=== PATIENT | male | born 1985 | race Caucasian/White ===

== ENCOUNTER 2025-01-18 11:02 | Emergency (ER) | payer MEDICAID, SELFPAY ==
--- NOTE | 2025-01-18 11:22 | XR_ITS ---
Examination: CT brain head without contrast. 2-D sagittal coronal reconstructions Date and time of exam:January 18, 2025 1136 hours INDICATIONS: Body paresthesias and blurred vision today CTDI: vol (mGy):54.1 DLP: (mGycm):1137 Technique: Multiple CT axial sections of the brain have been obtained, 5 mm slice thickness. Contrast has not been administered. 2-D sagittal, coronal reconstructions have been obtained Low dose protocols were performed. One or more of the following dose reduction techniques were used; automated exposure control, adjustment of the mA and/or KV according to patient size, use of iterative reconstruction technique. Findings: No significant ventricular enlargement. Left frontal encephalomalacia, left temporal lobe encephalomalacia Intra-axial or extra-axial hemorrhage density is not seen. No mass effect or midline shift Basal cisterns are not remarkable. Fourth ventricle is midline. Cranial vault intact. Partially ossified retention cyst in the right maxillary antrum Impression: Negative for acute hemorrhage, mass effect or midline shift As clinically warranted, brain MRI follow-up would best assess for demyelinating disease
[2025-01-18 11:23] VITALS: BP 126/85; PULSE 100; RESP 18; TEMP 36.6; O2SAT 95; BMI 31.3
--- NOTE | 2025-01-18 11:23 | XR_ITS ---
Examination: PA lateral chest 2 views Technique upright PA lateral chest 2 views Date and time: January 18, 2025 1139 hours INDICATIONS: Body aches and chest pain today FINDINGS: Normal heart size. Lungs are clear. The osseous structures are intact IMPRESSION: No active disease
--- NOTE | 2025-01-18 11:23 | EKG_ITS ---
[facility] Test Date: 2025-01-18 Pat Name: MEHNAZ ZHANG Department: Room: - Gender: Male Business Office Representative: : 1985 Requested By: Gibran Dexter (CLAUDETTE) Order Number: [id number] Reading MD: Gibran Dexter (CLAUDETTE) Measurements Intervals [place] Rate: 99 P: 44 NE: 158 QRS: 25 QRSD: 89 T: 21 QT: 332 QTc: 427 Interpretive Statements SINUS RHYTHM No previous ECG available for comparison /store/S0/[id number]/[id number]
--- NOTE | 2025-01-18 11:23 | PD.EDRME ---
Rapid Medical Screening Exam RME Arrival date/time: 01/18/25 11:02 39-year-old male presents emergency department today for complaints of feeling off today patient reports feeling shaky with blurred vision Chief Complaint: Skin/Abscess/Foreign Body
[2025-01-18 12:03] LABS: Basophils # (Auto) 0.1 Thou/mm3 (0.0-0.2); Basophils % (Auto) 1 % (0-2.5); Eosinophils # (Auto) 0.1 Thou/mm3 (0.0-0.5); Eosinophils % (Auto) 1 % (0-10); Hematocrit 46.9 % (41.0-53.0); Hemoglobin 16.5 g/dL (13.5-16.0); Immature Granulocytes Auto 0.03 Thou/mm3 (0.00-0.00); Lymphocytes # (Auto) 1.2 Thou/mm3 (1.0-4.8); Lymphocytes % (Auto) 15 % (10-50); Mean Corpuscular HGB Conc 35.2 g/dl (31.0-37.0); Mean Corpuscular Hemoglobin 30.1 pg (25.0-35.0); Mean Corpuscular Volume 86 fL (80-100); Monocytes # (Auto) 0.5 Thou/mm3 (0.0-0.8); Monocytes % (Auto) 7 % (0-12); Neutrophils # (Auto) 5.8 Thou/mm3 (1.8-7.7); Neutrophils % (Auto) 75 % (37-80); Nucleated Red Blood Cell # 0.00 Thou/mm3 (0.00-0.00); Nucleated Red Blood Cell % 0 /100 WBC (0); Platelet Count 248 Thou/mm3 (140-440); RDW Standard Deviation 37.2 fL (35.1-43.9); Red Blood Count 5.48 Miln/mm3 (4.50-5.90); White Blood Count 7.7 Thou/mm3 (3.8-10.6)
[2025-01-18 12:11] LABS: INR 1.1 (0.9-1.3); Partial Thromboplastin Time 26.8 Seconds (22.0-36.0); Prothrombin Time 11.9 Seconds (9.0-12.2)
[2025-01-18 12:14] LABS: B-Type Natriuretic Peptide 20 pg/mL (0-100)
[2025-01-18 12:15] LABS: Alanine Aminotransferase 30 U/L (10-49); Albumin, Serum 4.9 gm/dL (3.5-5.0); Albumin/Globulin Ratio 2.0 (1.2-2.2); Alkaline Phosphatase 92 U/L (46-116); Anion Gap 11 (7-16); Aspartate Amino Transferase 21 U/L (0-34); BUN/Creatinine Ratio 5 Ratio (12-20); Bilirubin,Total 1.1 mg/dL (0.3-1.2); Blood Urea Nitrogen < 5 mg/dL (9-23); Calcium 9.3 mg/dL (8.3-10.6); Calcium (Corrected) 9.3 mg/dL (8.5-10.1); Carbon Dioxide 27.0 mMol/L (20.0-31.0); Chloride 105 mMol/L (98-107); Creatinine (Component) 1.0 mg/dL (0.6-1.3); Estimated Creatinine Clearance 114.6 mL/min (>60); Globulin 2.5 gm/dL (2.3-3.5); Glucose 104 mg/dL (74-106); Magnesium 1.6 mg/dL (1.6-2.6); Osmolality,Calculated 282 (275-295); Potassium 3.3 mMol/L (3.4-5.1); Sodium 143 mMol/L (136-145); Total Protein 7.4 gm/dL (5.7-8.2); Troponin I < 0.002 ng/mL (0.0-0.045); eGFR > 60 See Note
[2025-01-18 12:20] LABS: Collection Type, Urine Clean Catch; Squamous Epithelial Cell,Urine 0 /hpf (0-5)
[2025-01-18 12:51] LABS: Bilirubin,Urine Negative (Negative); Blood,Urine Negative (Negative); Clarity,Urine Clear (Clear/Hazy); Color,Urine Yellow (Lt Yel-Yel); Glucose, Urine Negative (Negative); Ketones,Urine Negative (Negative); Leukocyte Esterase,Urine Negative (Negative); Nitrite,Urine Negative (Negative); PH,Urine 5.5 (5.0-7.0); Protein,Urine Negative (Neg - Trace); RBC,Urine 3 /hpf (0-3); Specific Gravity,Urine 1.020 (1.001-1.035); Urobilinogen,Urine Negative mg/dL (0.0-1.0); WBC,Urine 2 /hpf (0-5)
[2025-01-18 12:54] LABS: Amphetamine/Methamp Scrn,U Negative (Negative); Barbiturate Screen,Urine Negative (Negative); Benzodiazepines Screen,Urine Negative (Negative); Benzoylecgonine Screen, Ur Negative (Negative); Fentanyl Screen,Urine Negative (Negative); Opiate Screen,Urine Negative (Negative); THC Screen,Urine Negative (Negative)
--- NOTE | 2025-01-18 17:10 | EDNOTE_ITS ---
ED General RME/HPI General Chief complaint: Skin/Abscess/Foreign Body Stated complaint: BODY TINGLING / PAIN; BLURRED VISION Time Seen by Provider: 01/18/25 14:04 Arrival date/time: 01/18/25 11:02 RME / HPI RME / HPI narrative: 39-year-old male presents emergency department today for complaints of feeling off today patient reports feeling shaky with blurred vision. Onset of symptoms earlier today. Symptoms symptoms mild. Patient is ambulatory. Denies any headache. Denies any focal neurologic deficit. Patient has significant history of anxiety. Related Data Previous Rx's ?Medication ?Instructions ?Recorded diphenhydramine HCl 25 mg capsule 25 mg PO TID PRN all ergic reaction 03/10/23 (Allergy Medication) #30 caps Allergies Allergy/AdvReac Type Severity Reaction Status Date / Time No Known Allergies Allergy Verified 01/18/25 11:06 Review of Systems Review of Systems Narrative Review of Systems: Review of system reviewed and within normal limits except mentioned in HPI ED Exam Narrative Physical exam: VITAL SIGNS: Reviewed. GENERAL APPEARANCE: Alert and interactive, follows commands, no acute distress, HEAD AND FACE: Non-traumatic. ENT: PERRL, pink conjunctivitis, eyelid no trauma, Mucous membrane moist. NECK: Supple, nontender, no nuchal rigidity. CHEST: No tenderness, no crepitus, no paradoxical movement, no retractions. LUNGS: Clear, well ventilated, symmetric, no rales, no wheezing, no ronchi, no stridor, good breath sounds bilaterally. HEART: Regular rate, regular rhythm, no murmur, no gallops. ABDOMEN: Soft, positive bowel sounds, nondistended, no guarding, nontender, no rebound, no masses, RECTAL: Deferred. GENITAL: Deferred. NEUROLOGICAL: Gross motor function intact sensory function intact, Appropriate for age. MUSCULOSKELETAL: low back nontender, full range of motion. EXTREMITIES: Nontender, full range of motion. SKIN: Color pink, dry, no rash, no lacerations, no abrasions, no contusions. LYMPHATICS: Deferred. Course Quality Measures none Orders Category Date Time Status Bedside Blood Glucose NOW Care 01/18/25 11:23 Active EKG (ED ONLY) *Do not use* NOW Care 01/18/25 11:[address] head/brain wo con Stat Exams 01/18/25 11:22 Completed EKG (ED Only) Stat Exams 01/18/25 11:23 Draft XR chest 2V Stat Exams 01/18/25 11:23 Completed B-Type Natriuretic Peptide Stat Lab 01/18/25 11:33 Completed CBC Stat Lab 01/18/25 11:33 Completed Comprehensive Metabolic Panel Stat Lab 01/18/25 11:33 Completed Drug Screen,Urine Stat Lab 01/18/25 12:00 Completed Magnesium Stat Lab 01/18/25 11:33 Completed Partial Thromboplastin Time Stat Lab 01/18/25 11:33 Completed Prothrombin Time with INR Stat Lab 01/18/25 11:33 Completed Troponin I Stat Lab 01/18/25 11:33 Completed Urinalysis Stat Lab 01/18/25 12:00 Completed Potassium Chloride [K-Dur] Med 01/18/25 17:08 Discontinued 40 meq PO X1 ONE Vital Signs Vital signs: Vital Signs Temperature 97.9 F 01/18/25 11:23 Pulse Rate 100 01/18/25 11:23 Respiratory Rate 18 01/18/25 11:23 Blood Pressure 126/85 H 01/18/25 11:23 Pulse Oximetry (%) 95 01/18/25 11:23 Oxygen Delivery Method Room Air 01/18/25 11:23 Discharge Plan Plan Patient Disposition: HOME (Self Care) Discharge Disposition comment: stable Prescriptions/Referrals Prescriptions/Med Rec: No Action diphenhydramine HCl [Allergy Medication] 25 mg capsule 25 mg PO TID PRN (Reason: allergic reaction) Qty: 30 0RF Referrals: No Primary/Family,Physician [Primary Care Provider] - In 1 week Problem List Clinical Impression: Paresthesia, Anxiety Patient/Caregiver Discharge Instructions Discharge Activity: activity as tolerated Education Materials: ED Paraesthesias Additional Instructions: Thank you for the opportunity for serving you today. You are stable for discharged . You are advised to: Follow-up with your PCP in 1 to 2 days Return to ED for worsening of symptoms Print Language: Lithuanian Stand Alone Forms: Jeannine Award Info., Patient Portal Info Letter MDM Narrative MDM hospital course: 39-year-old male presents emergency department today for complaints of feeling off today patient reports feeling shaky with blurred vision. Onset of symptoms earlier today. Symptoms symptoms mild. Patient is ambulatory. Denies any headache. Denies any focal neurologic deficit. Patient has significant history of anxiety. Patient's CT scan of the head came back normal. Laboratory workup also unremarkable except for potassium of 3.3. I personally reviewed and interpreted the x-ray of this patient. There is no acute abnormalities found, no infiltrates no pneumothorax no hemothorax normal chest x-ray. Review of other structures was without significant abnormal findings also. I additionally reviewed the radiologist report and agree with the interpretation. Patient results discussed with him and his . Was given potassium replacement in the ED. Patient stable for discharge home. Medication Administration(s) Medication Administration History Discontinued Medications Potassium Chloride (Potassium Chloride 20 Meq Tabcr) 40 meq PO X1 ONE Stop: 01/18/25 17:09 Diagnosis Differential diagnosis: Paresthesia, anxiety Most likely dx, and/or detailed dx discussion: Paresthesia, anesthesia Dispositon Disposition: Discharge Home
== END 2025-01-18 17:45 | disposition home or self-care (01) ==
PROVIDERS: Nurse Practitioner Primary Care; Emergency Provider Emergency Medicine
DX: F41.9 Anxiety disorder, unspecified (principal); R20.2 Paresthesia of skin
CPT/HCPCS: 36415; 70450; 71046; 80053; 80307; 81001; 83735; 83880; 84484; 85025; 85610; 85730; 93005; 99284; A9270

== ENCOUNTER → 2025-02-17 | Outpatient (CLI) | payer OTHER, SELFPAY ==
--- NOTE | 2025-02-17 11:30 | XR_ITS ---
Examination: Abdomen sonogram, complete Date and time of exam: February 17, 2025 1131 hours INDICATIONS: Right upper abdominal pain beginning several years ago. Technique: Multiple real-time grayscale transabdominal sonographic images of the abdomen have been obtained. Findings: Normal gallbladder. Normal common bile duct 0.3 cm. Pancreas obscured by bowel gas. Mid and distal aorta not enlarged. Liver 12.7 cm fatty infiltration smooth contour Normal hepatopedal portal venous flow Patent IVC Right kidney 11.9 cm cortex 1.5 cm Left kidney 11.7 cm cortex 1.7 cm Moderate renal scar formation Spleen 12.0 cm IMPRESSION: Normal gallbladder No focal liver lesions Moderate bilateral renal parenchymal scar formation
== END | disposition home or self-care (01) ==
PROVIDERS: Referring Provider Nurse Practitioner Family; Visit Provider Nurse Practitioner Family
DX: N28.89 Other specified disorders of kidney and ureter (principal)
CPT/HCPCS: 76700